=== PATIENT | male | born 1940 | race Caucasian/White ===

== ENCOUNTER → 2016-05-25 | Outpatient (CLI) | payer MEDICARE, OTHER ==
--- NOTE | 2016-05-25 10:09 | Diagnostic Imaging Report ---
EXAMINATION: Magnetic resonance imaging of the right shoulder without contrast. DATE: 05/25/2016. COMPARISON: [<None.>] HISTORY: Chronic right shoulder pain. TECHNIQUE: Magnetic Resonance Imaging sequences were performed of the shoulder without contrast. [< >] FINDINGS: ROTATOR CUFF, LIGAMENTS, TENDONS, AND MUSCLES: The infraspinatus, teres minor, and subscapularis tendons and muscles are intact. There is a full-thickness tear of the distal supraspinatus tendon with 5 mm of retraction. There is thickening of the proximal supraspinatus tendon consistent with chronic tendinopathy. There is normal rotator cuff muscle bulk and signal. LONG HEAD OF BICEPS: The biceps labral attachment and long head of the biceps tendon is intact. The long head of the biceps tendon is normally positioned within the bicipital groove. GLENOHUMERAL JOINT: The humeral head is well positioned relative to the glenoid. There is irregularity of the anterior superior labrum with probable full-thickness tear. There is thinning of the articulating cartilage along the glenohumeral joint. There is small joint effusion present in the glenohumeral synovial space as well as in the subacromial bursa. ACROMIOCLAVICULAR JOINT: The acromioclavicular joint is normally aligned. There is advanced degenerative disease of the AC joint with marked hypertrophy and osteophyte formation. There is fluid in the subacromial bursa consistent with rotator cuff tear. BONE: The bones all have normal configuration. There is subcortical cystic change noted of the humeral tuberosity consistent with chronic rotator cuff findings and rotator cuff tear. Marrow signal otherwise is normal in the humeral head and the glenoid. BURSAE AND SOFT TISSUES: The bursae and soft tissue surrounding the shoulder are unremarkable. IMPRESSION: 1. There is full-thickness tear of the distal supraspinatus tendon with 5 mm of retraction. There is also considerable thickening of the supraspinatus tendon. 2. Findings suggest full-thickness labral tear anteriorly and superiorly. 3. 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 Dictated by: Dictated on workstation # [id number]
== END ==
LOC: RAD 08:24
PROVIDERS: ATTEND Family Medicine
DX: M25.511 Pain in right shoulder (principal); M75.121 Complete rotator cuff tear or rupture of right shoulder, not specified as traumatic; M19.011 Primary osteoarthritis, right shoulder
CPT/HCPCS: 73221